=== PATIENT | male | born 1985 | race Caucasian/White ===

== ENCOUNTER 2023-06-18 19:00 | Emergency (ER) | payer OTHER ==
[~2023-06-18] VITALS: Ht 172.7 cm; Wt 68.0 kg
[2023-06-18 19:07] VITALS: TEMP 98.2
[2023-06-18] MEDS ORDERED: IBUPROFEN 600 MG TABLET PO ONE (19:30)
[2023-06-18] MEDS ORDERED: ACETAMINOPHEN ES 500 MG TABLET PO ONE (19:30)
[2023-06-18] MEDS ORDERED: ACETAMINOPHEN ES 500 MG TABLET ONE (20:49)
[2023-06-18] MEDS ORDERED: IBUPROFEN 600 MG TABLET ONE (20:50)
[2023-06-19 01:08] VITALS: BP 127/78; O2SAT 99
== END 2023-06-18 21:00 ==
LOC: ER 19:02
DX: S09.8XXA Other specified injuries of head, initial encounter (principal); W22.01XA Walked into wall, initial encounter; Y93.89 Activity, other specified; Y92.89 Other specified places as the place of occurrence of the external cause; Y99.8 Other external cause status
CPT/HCPCS: 70450-TC; 72125-TC